=== PATIENT | male | born 1975 | race Caucasian/White ===

== ENCOUNTER 2025-08-18 19:23 | Emergency (ER) | payer OTHER ==
[~2025-08-18] VITALS: Ht 180.3 cm; Wt 75.0 kg
[2025-08-18 21:27] LABS: PLATELET COUNT (AUTO) 324 K/uL (150-450); RED BLOOD CELL COUNT(AUTO) 4.92 MIL/uL (4.50-5.90); RED CELL DISTRIBUTION WIDTH 13.5 % (11.5-14.5); WHITE BLOOD COUNT (AUTO) 9.4 K/uL (4.5-11.0)
[2025-08-18 21:37] LABS: CALCIUM, TOTAL 9.2 mg/dL (8.8-10.5); CREATININE 0.65 mg/dL (0.60-1.30); GLOMERULAR FILTR. RATE CALC > 60 mL/min (>60); GLUCOSE,RANDOM 92 mg/dL (70-110); SODIUM SERUM 137 mmol/L (136-145); UREA NITROGEN, BLOOD 25 mg/dL (7-18)
[2025-08-18 21:41] LABS: ASPARTATE AMINOTRANSFERASE 24.0 U/L (15-37); TOTAL PROTEIN, SERUM 7.3 g/dL (6.4-8.2)
[2025-08-18 21:54] VITALS: TEMP 97.9
[2025-08-19] MEDS ORDERED: SODIUM CHLORIDE 0.9% 100 ML ONE (01:16)
[2025-08-19] MEDS ORDERED: IOHEXOL 300 MG/ML 100 ML VIAL ONE (01:16)
[2025-08-19 03:00] VITALS: BP 112/75; PULSE 69; RESP 15; O2SAT 99
[2025-08-19 07:21] LABS: APPEARANCE,URINE CLEAR (CLEAR); GLUCOSE, URINE (UA) NEGATIVE (NEGATIVE); LEUKOCYTE ESTERASE ,URINE NEGATIVE (NEGATIVE); NITRATE,URINE NEGATIVE (NEGATIVE); OCCULT BLOOD,URINE SMALL (NEGATIVE)
[2025-08-19 07:23] LABS: SPECIFIC GRAVITIY, URINE > 1.030 (1.003-1.030)
== END 2025-08-19 06:28 ==
LOC: EMS 19:26
DX: K40.91 Unilateral inguinal hernia, without obstruction or gangrene, recurrent (principal); R10.32 Left lower quadrant pain; E11.9 Type 2 diabetes mellitus without complications
CPT/HCPCS: 99285; 80048; 80076; 81001; 83690; 85025; 36415; 74177; J7050; Q9967